=== PATIENT | male | born 1950 | race Caucasian/White ===

== ENCOUNTER 2022-01-16 00:56 | Emergency (ER) | payer OTHER ==
[~2022-01-16] VITALS: Ht 177.8 cm; Wt 104.3 kg
[2022-01-16] MEDS ORDERED: ELIQUIS5 MG PO (01:21)
[2022-01-16] MEDS ORDERED: TYLENOL325 M1 PO (01:21)
[2022-01-16] MEDS ORDERED: LIPITOR 80MG80 MG PO (01:22)
[2022-01-16] MEDS ORDERED: LUBRICANT 0.5-015 ML (01:23)
[2022-01-16] MEDS ORDERED: VITAMIN D325 MC8 PO (01:24)
[2022-01-16] MEDS ORDERED: COLACE100 M1 PO (01:25)
[2022-01-16] MEDS ORDERED: PROZAC20 M1 PO (01:25)
[2022-01-16] MEDS ORDERED: HYDROXYZINE HCL25 M1 PO (01:26)
[2022-01-16] MEDS ORDERED: MELATIN 3 MG-11 TAB PO (01:27)
[2022-01-16] MEDS ORDERED: ZESTRIL10 M1 PO (01:27)
[2022-01-16] MEDS ORDERED: OLANZAPINE20 M1 PO (01:29)
[2022-01-16] MEDS ORDERED: PROTONIX TR40 M1 PO (01:30)
[2022-01-16] MEDS ORDERED: FLOMAX0.4 MG PO (01:30)
[2022-01-16] MEDS ORDERED: DESYREL 100MG100 MG PO (01:31)
[2022-01-16] MEDS ORDERED: GLUCOPHAGE PO (01:57)
[2022-01-16 02:08] LABS: HEMATOCRIT 45.1 % (42.0-52.0); HEMOGLOBIN 15.2 g/dL (13.5-18.0); MEAN CELL VOLUME 90 fl (78-100); MEAN CORPUSCULAR HEMOGLOBIN 31 pg (27-31); MEAN CORPUSCULAR HGB CONC 34 g/dL (33-37); MEAN PLATELET VOLUME 9.4 fl (7.4-10.4); PLATELET COUNT 176 K/mm3 (130-400); RED BLOOD COUNT 4.99 M/mm3 (4.20-5.60); RED CELL DISTRIBUTION WIDTH 14.6 % (11.5-14.5); WHITE BLOOD COUNT 6.2 K/mm3 (4.8-10.8)
[2022-01-16 02:42] LABS: URINE APPEARANCE CLEAR; URINE COLOR YELLOW
[2022-01-16 02:43] LABS: URINE BILIRUBIN 1+ (NEGATIVE); URINE BLOOD NEGATIVE (NEGATIVE); URINE GLUCOSE 50 mg/dL (NEGATIVE); URINE KETONE 3+ (NEGATIVE); URINE LEUKOCYTE ESTERASE NEGATIVE (NEGATIVE); URINE MUCUS PRESENT (NOT PRESENT); URINE NITRATE NEGATIVE (NEGATIVE); URINE PROTEIN(semi-quant) 1+ (NEGATIVE); URINE UROBILINOGEN NORMAL (NORMAL); URINE WBC 0-1 /hpf (0-3)
[2022-01-16 02:44] LABS: ALBUMIN 3.9 g/dL (3.4-4.8); SODIUM 135 mmol/L (136-145)
[2022-01-16 02:46] LABS: GLUCOSE 259 mg/dL (75-110); TOTAL PROTEIN 6.8 g/dL (6.2-8.1)
[2022-01-16 02:48] LABS: TOTAL BILIRUBIN 1.2 mg/dL (0.2-1.2)
[2022-01-16 02:52] LABS: AST-SGOT 64 U/L (5-34)
[2022-01-16 02:53] LABS: ALT/SGPT 37 U/L (0-55); MAGNESIUM 1.85 mg/dL (1.60-2.60)
[2022-01-16 02:54] LABS: LIPASE 34 U/L (8-78)
[2022-01-16 02:58] LABS: LYMPHOCYTE 5 % (20-51); MONOCYTE 4 % (3-10); NEUTROPHILS 91 % (42-75)
[2022-01-16 03:02] LABS: CARBON DIOXIDE 15 mmol/L (23-31); TROPONIN-I < 0.030 ng/mL (<0.030)
[2022-01-16 03:16] LABS: D-DIMER 0.44 mg/L FEU (0.15-0.50)
[2022-01-16 08:31] VITALS: BP 123/92
== END 2022-01-16 10:37 | disposition home or self-care (01) ==
LOC: ED 00:56
PROVIDERS: Family Medicine
DX: E86.0 Dehydration (principal); R53.81 Other malaise; R53.83 Other fatigue; Z20.822 Contact with and (suspected) exposure to COVID-19; Z28.310 Unvaccinated for COVID-19
CPT/HCPCS: J0595; J7030; Q9967